=== PATIENT | male | born 2000 | race Caucasian/White ===

== ENCOUNTER 2021-09-26 14:44 | Emergency (ER) | payer BC ==
[~2021-09-26] VITALS: Ht 165.1 cm; Wt 104.3 kg
[~2021-09-26 14:44] MED LIST: AMOXICILLI400 MG/5 M PO
[2021-09-26 15:14] LABS: URINE BILIRUBIN NEGATIVE (Negative); URINE BLOOD NEGATIVE (Negative); URINE CLARITY CLEAR; URINE COLOR YELLOW; URINE GLUCOSE-RANDOM NEGATIVE (Negative); URINE KETONES NEGATIVE (Negative); URINE LEUKOCYTES-REFLEX NEGATIVE (Negative); URINE NITRITE-REFLEX NEGATIVE (Negative); URINE PROTEIN NEGATIVE (Negative)
[2021-09-26 15:21] LABS: ABSOLUTE LYMPHOCYTES 1.5 thou/uL (0.8-5.3); ABSOLUTE MONOCYTES 0.3 thou/uL (0.0-1.2); ABSOLUTE NEUTROPHILS 4.1 thou/uL (1.6-8.1); BASOPHILS 0.4 %; EOSINOPHILS 0.5 %; HEMATOCRIT 46.1 % (42.0-52.0); HEMOGLOBIN 16.2 gm/dL (14.0-18.0); LYMPHOCYTES 24.6 %; MCH 33.4 pg (26.0-34.0); MCHC 35.2 g/dL (28.0-37.0); MCV 94.8 fL (80.0-100.0); MPV 7.3 fl. (7.2-11.1); NUCLEATED RBCS 0 /100WBC; PLATELET COUNT* 244 thou/uL (150-400); POLYS 69.5 %; RBC 4.86 mil/uL (4.50-6.00); RDW-CV 12.7 % (10.5-14.5)
[2021-09-26 15:25] LABS: AMP/METHAMP Negative (Negative); BARBITURATES Negative (Negative); BENZODIAZEPINES Negative (Negative); COCAINE Negative (Negative); METHADONE Negative (Negative); OPIATES Negative (Negative); PCP Negative (Negative); THC POSITIVE (Negative)
[2021-09-26 15:28] LABS: CREATININE 0.8 mg/dL (0.6-1.3); POTASSIUM 3.7 mmol/L (3.5-5.1)
[2021-09-26 15:32] LABS: ALBUMIN 3.7 g/dL (3.4-5.0); CALCIUM 8.8 mg/dL (8.5-10.1); TOTAL BILIRUBIN 0.5 mg/dL (<0.1-1.0); TOTAL PROTEIN 7.1 g/dL (6.4-8.2)
[2021-09-26] MEDS ORDERED: PROTONIX40 M2 PO (16:14)
[2021-09-26] MEDS ORDERED: ZOFRAN ODT4 MG PO (16:14)
[2021-09-26 16:29] VITALS: BP 112/70
== END 2021-09-26 16:30 | disposition home or self-care (01) ==
LOC: M.ERS 14:44
PROVIDERS: Nurse Practitioner Family
DX: R11.2 Nausea with vomiting, unspecified (principal); K21.9 Gastro-esophageal reflux disease without esophagitis; G40.909 Epilepsy, unspecified, not intractable, without status epilepticus; Z88.7 Allergy status to serum and vaccine